=== PATIENT | female | born 1970 | race Caucasian/White ===

== ENCOUNTER 2019-04-27 18:18 | Emergency (ER) | payer BC, OTHER ==
[2019-04-27 18:31] VITALS: TEMP 98.9
--- NOTE | 2019-04-27 19:14 | ED ---
Extremity Problem HPI - General Chief complaint: Extremity Problem,Nontraumatic Stated complaint: Rule out blood clot Time Seen by Provider: 04/27/19 18:34 Source: patient Mode of arrival: ambulatory Limitations: no limitations - History of Present Illness Initial comments: 49-year-old female patient presents to the emergency department today for evaluation of left posterior knee pain. Patient states she's been having the pain for the last several hours. Patient states for the last couple days she has been having intense cramping to the left lower leg. Patient denies any redness or swelling to the leg. Denies any fever or chills. Denies any recent injury but a couple months ago did fall down the stairs and had extensive bruising over most of her body. Patient denies history of DVT. States she did travel to [place] by car in December. She denies any use of hormonal medications. Patient denies any recent rash, shortness breath, chest pain, abdominal pain, nausea, vomiting, diarrhea, constipation, back pain, numbness, tingling, dizziness, weakness, hematuria, dysuria, urinary urgency, urinary frequency, headache, visual changes, or any other complaints. - Related Data Home Medications Medication Instructions Recorded Confirmed No Known Home Medications 04/27/19 04/27/19 Allergies Allergy/AdvReac Type Severity Reaction Status Date / Time morphine Allergy Unknown Verified 04/27/19 18:48 Review of Systems ROS Statement: Those systems with pertinent positive or pertinent negative responses have been documented in the HPI. ROS Other: All systems not noted in ROS Statement are negative. Past Medical History Past Medical History: No Reported History Additional Past Medical History / Comment(s): skin ca History of Any Multi-Drug Resistant Organisms: None Reported Past Surgical History: Section, Cholecystectomy, Hysterectomy Additional Past Surgical History / Comment(s): skin ca removal Past Psychological History: No Psychological Hx Reported Smoking Status: Former smoker Past Alcohol Use History: Occasional Past Drug Use History: Marijuana General Exam Limitations: no limitations General appearance: alert, in no apparent distress, other (This is a well- developed, well-nourished adult female patient in no acute distress. Vital signs upon presentation are temperature 98.9F, pulse 95, respirations 18, blood pressure 149/98, pulse ox 100% on room air.) Eye exam: Present: normal appearance, PERRL, EOMI. Absent: scleral icterus, conjunctival injection, periorbital swelling ENT exam: Present: normal exam, normal oropharynx, mucous membranes moist Respiratory exam: Present: normal lung sounds bilaterally. Absent: respiratory distress, wheezes, rales, rhonchi, stridor Cardiovascular Exam: Present: regular rate, normal rhythm, normal heart sounds. Absent: systolic murmur, diastolic murmur, rubs, gallop, clicks GI/Abdominal exam: Present: soft, normal bowel sounds. Absent: distended, tenderness, guarding, rebound, rigid Extremities exam: Present: normal inspection, full ROM, tenderness (left posterior knee), normal capillary refill, other (Skin to the left leg is pink, warm, dry. Cap refills less than 3 seconds. Pedal pulses 2+ and equal bilaterally.). Absent: pedal edema, joint swelling, calf tenderness Neurological exam: Present: alert, oriented X3, CN II-XII intact Psychiatric exam: Present: normal affect, normal mood Skin exam: Present: warm, dry, intact, normal color. Absent: rash Course Vital Signs 04/27/19 04/27/19 18:26 21:53 Temperature 98.9 F Pulse Rate 95 76 Respiratory 18 19 Rate Blood Pressure 149/98 136/85 O2 Sat by Pulse 100 95 Oximetry Medical Decision Making - Medical Decision Making 49-year-old female patient presented to the emergency department today for evaluation of discomfort behind the left knee. Patient is also reporting lower leg cramping for the last couple of days. Physical examination is unremarkable. Skin is pink, warm, and dry. Cap refills less than 3 seconds. No swelling was noted. No erythema. Patient's vital signs are stable. Fever. Ultrasound was obtained to rule out DVT, was negative. I did discuss findings and results with the patient. She is instructed take Tylenol Motrin for pain control. Instructed to follow-up with the primary care physician for recheck in 1-2 days. Return parameters discussed in detail. She verbalizes understanding and agreed with this plan. - Radiology Data Radiology results: report reviewed, image reviewed Doppler duplex of the left lower trauma he was obtained. Report was reviewed in its entirety. Impression by Dr. Packer shows no evidence of deep venous thrombosis in the left leg. Disposition Clinical Impression: Left knee pain Disposition: HOME SELF-CARE Condition: Good Instructions (If sedation given, give patient instructions): Knee Pain (ED) Additional Instructions: Take Tylenol and Motrin for discomfort. Rest leg. Follow-up through primary care physician for recheck in 1-2 days. Return to the emergency department immediately for any new, worsening, or concerning symptoms. Is patient prescribed a controlled substance at d/c from ED?: No Referrals: Aron Macedo MD [Primary Care Provider] - 1-2 days Time of Disposition: 21:38
--- NOTE | 2019-04-27 21:23 | US ---
EXAMINATION TYPE: US venous doppler duplex LE LT DATE OF EXAM: 04/27/2019 9:10 PM COMPARISON: NONE CLINICAL HISTORY: Pain. Pain left leg x 1 day. No hx of DVT. Not on thinners. SIDE PERFORMED: Left TECHNIQUE: The lower extremity deep venous system is examined utilizing real time linear array sonog kwesi with graded compression, doppler sonography and color-flow sonography. VESSELS IMAGED: External Iliac Vein (EIV) Common Femoral Vein Deep Femoral Vein Greater Saphenous Vein * Femoral Vein Popliteal Vein Proximal Calf Veins (* superficial vessels) Left Leg: No evidence of DVT in left leg at this time. IMPRESSION: No evidence of deep venous thrombosis in the left leg.
[2019-04-27 21:54] VITALS: BP 136/85; PULSE 76; RESP 19
== END 2019-04-27 21:52 | disposition home or self-care (01) ==
LOC: EC 18:18
DX: M25.562 Pain in left knee (principal); R50.9 Fever, unspecified; Z85.828 Personal history of other malignant neoplasm of skin; Z87.891 Personal history of nicotine dependence; Z90.49 Acquired absence of other specified parts of digestive tract; Z90.710 Acquired absence of both cervix and uterus; Z98.890 Other specified postprocedural states; Z88.5 Allergy status to narcotic agent
CPT/HCPCS: 99283

== ENCOUNTER 2020-08-07 02:33 | Observation (INO) | payer OTHER ==
--- NOTE | 2020-08-07 02:56 | ED ---
Abdominal Pain HPI - General Chief Complaint: Abdominal Pain Stated Complaint: Abd Pain Time Seen by Provider: 08/07/20 02:50 Source: patient, EMS Mode of arrival: EMS Limitations: no limitations - History of Present Illness Initial Comments: This patient is 50-year-old woman who presents to be evaluated for epigastric pain. Patient states that it had come on this evening, and then she had intense urge to have bowel movement. Pain was initially aching, severe, and constant. She does note that it has started to improve and she rates it moderate cu rrently. She had similar episode within the past couple of months and she had been admitted to the hospital in [place] and states that they checked her for heart disease. MD Complaint: abdominal pain -: hour(s) Location: epigastric Radiation: none Migration to: no migration Severity: moderate, severe Quality: aching Consistency: constant Improves With: nothing Worsens With: nothing Associated Symptoms: diarrhea - Related Data Previous Rx's Medication Instructions Recorded Famotidine [Pepcid] 20 mg PO HS tab 08/07/20 Pantoprazole Sodium [Protonix] 40 mg PO BID #60 tablet. 08/07/20 Allergies Allergy/AdvReac Type Severity Reaction Status Date / Time morphine Allergy Unknown Verified 08/07/20 06:08 Review of Systems ROS Statement: Those systems with pertinent positive or pertinent negative responses have been documented in the HPI. ROS Other: All systems not noted in ROS Statement are negative. Constitutional: Denies: fever, chills Respiratory: Denies: cough, dyspnea Cardiovascular: Denies: chest pain, palpitations, edema Gastrointestinal: Reports: abdominal pain, diarrhea. Denies: vomiting, constipation, melena, hematochezia Genitourinary: Denies: dysuria, hematuria Musculoskeletal: Denies: back pain Skin: Denies: rash Neurological: Denies: headache, weakness, numbness Past Medical History Past Medical History: No Reported History Additional Past Medical History / Comment(s): skin ca, esophageal spasms, hiatal hernia History of Any Multi-Drug Resistant Organisms: None Reported Past Surgical History: Section, Cholecystectomy, Hysterectomy Additional Past Surgical History / Comment(s): skin ca removal Past Psychological History: No Psychological Hx Reported Smoking Status: Former smoker Past Alcohol Use History: Occasional Past Drug Use History: Marijuana - Past Family History Father Family Medical History: Myocardial Infarction ([place]) Additional Family Medical History / Comment(s): Father of a [place] at the age of 47yrs. Mother Family Medical History: No Reported History Additional Family Medical History / Comment(s): Mother is healthy General Exam Limitations: no limitations General appearance: alert, in no apparent distress Head exam: Present: atraumatic, normocephalic Eye exam: Present: normal appearance. Absent: scleral icterus, conjunctival injection ENT exam: Present: normal oropharynx Neck exam: Present: normal inspection Respiratory exam: Present: normal lung sounds bilaterally. Absent: respiratory distress, wheezes, rales, rhonchi, stridor Cardiovascular Exam: Present: regular rate, normal rhythm, normal heart sounds. Absent: systolic murmur, diastolic murmur, rubs, gallop GI/Abdominal exam: Present: soft, tenderness (Mild epigastric tenderness). Absent: distended, guarding, rebound, rigid, mass, pulsatile mass, hernia Extremities exam: Present: normal inspection, normal capillary refill. Absent: pedal edema, calf tenderness Back exam: Present: normal inspection. Absent: CVA tenderness (R), CVA tenderness (L) Neurological exam: Present: alert Skin exam: Present: warm, dry, intact, normal color. Absent: rash Course Vital Signs 08/07/20 08/07/20 08/07/20 02:36 03:40 04:38 Temperature 98.9 F Pulse Rate 108 H 94 102 H Respiratory 20 19 18 Rate Blood Pressure 142/82 112/90 125/74 O2 Sat by Pulse 97 96 96 Oximetry 08/07/20 08/07/20 08/07/20 05:15 06:00 06:57 Temperature 98.8 F 98.6 F Pulse Rate 102 H 94 96 Respiratory 18 19 17 Rate Blood Pressure 125/81 130/77 119/67 O2 Sat by Pulse 97 98 100 Oximetry Medical Decision Making - Lab Data Result diagrams: 08/07/20 03:31 08/07/20 03:31 Lab Results 08/07/20 08/07/20 08/07/20 Range/Units 03:31 03:31 03:31 WBC 7.4 (3.8-10.6) k/uL RBC 4.17 (3.80-5.40) m/uL Hgb 14.2 (11.4-16.0) gm/dL Hct 42.0 (34.0-46.0) % MCV 100.8 H (80.0-100.0) fL MCH 34.1 (25.0-35.0) pg MCHC 33.9 (31.0-37.0) g/dL RDW 13.0 (11.5-15.5) % Plt Count 75 L (150-450) k/uL Neutrophils % 76 % Lymphocytes % 14 % Monocytes % 6 % Eosinophils % 2 % Basophils % 1 % Neutrophils # 5.6 (1.3-7.7) k/uL Lymphocytes # 1.0 (1.0-4.8) k/uL Monocytes # 0.5 (0-1.0) k/uL Eosinophils # 0.2 (0-0.7) k/uL Basophils # 0.0 (0-0.2) k/uL Manual Slide Review Performed D-Dimer (<0.60) mg/L FEU Sodium 138 (137-145) mmol/L Potassium 4.9 (3.5-5.1) mmol/L Chloride 108 H (98-107) mmol/L Carbon Dioxide 22 (22-30) mmol/L Anion Gap 8 mmol/L BUN 20 H (7-17) mg/dL Creatinine 0.77 (0.52-1.04) mg/dL Est GFR (CKD-EPI)AfAm >90 (>60 ml/min/1.73 sqM) Est GFR (CKD-EPI)NonAf 89 (>60 ml/min/1.73 sqM) Glucose 105 H (74-99) mg/dL Calcium 9.6 (8.4-10.2) mg/dL Total Bilirubin 0.7 (0.2-1.3) mg/dL AST 36 (14-36) U/L ALT 21 (4-34) U/L Alkaline Phosphatase 73 (38-126) U/L Troponin I (0.000-0.034) ng/mL Total Protein 7.4 (6.3-8.2) g/dL Albumin 4.4 (3.5-5.0) g/dL Amylase 50 (30-110) U/L Lipase 125 (23-300) U/L Urine Color Yellow Urine Appearance Cloudy H (Clear) Urine pH 5.5 (5.0-8.0) Ur Specific Ransom 1.032 (1.001-1.035) Urine Protein 1+ H (Negative) Urine Glucose (UA) Negative (Negative) Urine Ketones Negative (Negative) Urine Blood Negative (Negative) Urine Nitrite Negative (Negative) Urine Bilirubin Negative (Negative) Urine Urobilinogen <2.0 (<2.0) mg/dL Ur Leukocyte Esterase Trace H (Negative) Urine RBC 1 (0-5) /hpf Urine WBC 8 H (0-5) /hpf Ur Squamous Epith Cells 3 (0-4) /hpf Hyaline Casts 1 (0-2) /lpf Urine Mucus Moderate H (None) /hpf 08/07/20 08/07/20 Range/Units 03:31 03:31 WBC (3.8-10.6) k/uL RBC (3.80-5.40) m/uL Hgb (11.4-16.0) gm/dL Hct (34.0-46.0) % MCV (80.0-100.0) fL MCH (25.0-35.0) pg MCHC (31.0-37.0) g/dL RDW (11.5-15.5) % Plt Count (150-450) k/uL Neutrophils % % Lymphocytes % % Monocytes % % Eosinophils % % Basophils % % Neutrophils # (1.3-7.7) k/uL Lymphocytes # (1.0-4.8) k/uL Monocytes # (0-1.0) k/uL Eosinophils # (0-0.7) k/uL Basophils # (0-0.2) k/uL Manual Slide Review D-Dimer 0.41 (<0.60) mg/L FEU Sodium (137-145) mmol/L Potassium (3.5-5.1) mmol/L Chloride (98-107) mmol/L Carbon Dioxide (22-30) mmol/L Anion Gap mmol/L BUN (7-17) mg/dL Creatinine (0.52-1.04) mg/dL Est GFR (CKD-EPI)AfAm (>60 ml/min/1.73 sqM) Est GFR (CKD-EPI)NonAf (>60 ml/min/1.73 sqM) Glucose (74-99) mg/dL Calcium (8.4-10.2) mg/dL Total Bilirubin (0.2-1.3) mg/dL AST (14-36) U/L ALT (4-34) U/L Alkaline Phosphatase (38-126) U/L Troponin I <0.012 (0.000-0.034) ng/mL Total Protein (6.3-8.2) g/dL Albumin (3.5-5.0) g/dL Amylase (30-110) U/L Lipase (23-300) U/L Urine Color Urine Appearance (Clear) Urine pH (5.0-8.0) Ur Specific Ransom (1.001-1.035) Urine Protein (Negative) Urine Glucose (UA) (Negative) Urine Ketones (Negative) Urine Blood (Negative) Urine Nitrite (Negative) Urine Bilirubin (Negative) Urine Urobilinogen (<2.0) mg/dL Ur Leukocyte Esterase (Negative) Urine RBC (0-5) /hpf Urine WBC (0-5) /hpf Ur Squamous Epith Cells (0-4) /hpf Hyaline Casts (0-2) /lpf Urine Mucus (None) /hpf - EKG Data -: EKG Interpreted by Ny EKG shows normal: sinus rhythm, axis (Left axis deviation), intervals (Normal), QRS complexes (Possible old inferior infarct) Rate: normal (Rate 98 bpm) Disposition Clinical Impression: Abdominal pain Disposition: ADMITTED IP TO THIS HOSP Condition: Stable
[2020-08-07 03:43] LABS: Appearance,Urine Cloudy (Clear); Bilirubin,Urine Negative (Negative); Blood,Urine Negative (Negative); Color,Urine Yellow; Glucose,Urine (UA) Negative (Negative); Hyaline Casts,Urine 1 /lpf (0-2); Ketones,Urine Negative (Negative); Leukocyte Esterase,Urine Trace (Negative); Mucus,Urine Moderate /hpf; Nitrite,Urine Negative (Negative); PH, Urine 5.5 (5.0-8.0); Protein,Urine 1+ (Negative); RBC,Urine 1 /hpf (0-5); Specific Gravity,Urine 1.032 (1.001-1.035); Squamous Epithelial Cell,Urine 3 /hpf (0-4); Urobilinogen,Urine <2.0 mg/dL (<2.0); WBC,Urine 8 /hpf (0-5)
[2020-08-07] MEDS ORDERED: KETOROLAC 15 MG/ML 1 ML VIAL IVP STA (03:58)
[2020-08-07 04:02] LABS: Basophils % (A) 1 %; Eosinophils # (A) 0.2 k/uL (0-0.7); Eosinophils % (A) 2 %; HGB 14.2 gm/dL (11.4-16.0); Lymphocytes % (A) 14 %; MCH 34.1 pg (25.0-35.0); MCHC 33.9 g/dL (31.0-37.0); MCV 100.8 fL (80.0-100.0); Mean Platelet Volume 10.3; Monocytes # (A) 0.5 k/uL (0-1.0); Monocytes % (A) 6 %; Neutrophils # (A) 5.6 k/uL (1.3-7.7); Neutrophils % (A) 76 %; RBC 4.17 m/uL (3.80-5.40); WBC 7.4 k/uL (3.8-10.6)
[2020-08-07] MEDS ORDERED: ONDANSETRON 4 MG/2 ML VIAL IVP STA (04:08)
--- NOTE | 2020-08-07 04:17 | XR ---
EXAMINATION TYPE: XR KUB DATE OF EXAM: 08/07/2020 COMPARISON: 04/09/2014 HISTORY: Abdominal pain TECHNIQUE: FINDINGS: 2 views supine were obtained. There is no sign of intestinal obstruction or pneumoperitoneu m. Fecal pattern is normal. There are clips from cholecystectomy. There is no evidence of a mass. Agnes g bases are clear. IMPRESSION: Nonacute abdomen. No change.
[2020-08-07 04:18] LABS: ALT 21 U/L (4-34); AST 36 U/L (14-36); African American GFR (CKD) >90 (>60 ml/min/1.73 sqM); Albumin 4.4 g/dL (3.5-5.0); Alkaline Phosphatase 73 U/L (38-126); Amylase 50 U/L (30-110); Anion Gap 8 mmol/L; Blood Urea Nitrogen 20 mg/dL (7-17); Calcium 9.6 mg/dL (8.4-10.2); Carbon Dioxide 22 mmol/L (22-30); Chloride 108 mmol/L (98-107); Glucose 105 mg/dL (74-99); Non-African American GFR(CKD) 89 (>60 ml/min/1.73 sqM); Potassium 4.9 mmol/L (3.5-5.1); Sodium 138 mmol/L (137-145); Total Bilirubin 0.7 mg/dL (0.2-1.3); Total Protein 7.4 g/dL (6.3-8.2)
[2020-08-07 04:45] LABS: Platelet Count 75 k/uL (150-450)
[2020-08-07] MEDS ORDERED: HYDROmorphone 0.5 MG/0.5 ML SYRINGE IVP STA (05:33)
--- NOTE | 2020-08-07 06:41 | CT ---
EXAMINATION TYPE: CT abdomen pelvis w con DATE OF EXAM: 08/07/2020 COMPARISON: HISTORY: Abdominal pain CT DLP: 1105.6 mGycm Automated exposure control for dose reduction was used. CONTRAST: Performed with IV Contrast, patient injected with 100 mL of Isovue 300. Lung bases are clear. There is no pleural effusion. Heart size is normal. There is no pericardial eff usion. Liver shows no focal defect. Spleen stomach pancreas appear normal. There are clips from brandyn cystectomy. The bile ducts are not dilated. There is no adrenal mass. Kidneys show satisfactory contrast opacification. There is no hydronephrosi s. There is normal excretion on the delayed images. Ureters are not dilated. There is no retroperiton eal adenopathy. Bladder distends smoothly. There is no inguinal hernia. There is hysterectomy. There is no free fluid in the pelvis. There is no evidence of a pelvic mass. Appendix is posterior and appears normal. There is no mesenteric edema. There is no ascites or free a ir. There is no bowel obstruction. The lumbar vertebra have fairly normal spacing and alignment. Post erior elements are intact. Facet joints are intact. Bony pelvis is intact. Hip joints appear normal. IMPRESSION: Negative CT scan abdomen and pelvis. Normal appendix. No adverse change.
[2020-08-07] MEDS ORDERED: DICYCLOMINE 10 MG/ML 2 ML AMP IM STA (06:59)
[2020-08-07] MEDS ORDERED: ONDANSETRON 4 MG/2 ML VIAL IVP PRN (07:10)
[2020-08-07] MEDS ORDERED: HYDROcodone/APAP 5-325MG 1 EACH TAB PO PRN (07:10)
[2020-08-07] MEDS ORDERED: MAG HYDROX/AL HYDROX/SIMETH 30 ML CUP PO PRN (07:10)
[2020-08-07] MEDS ORDERED: NALOXONE 0.4 MG/ML 1 ML VIAL IV PRN (07:10)
[2020-08-07] MEDS ORDERED: MAGNESIUM HYDROXIDE 2,400 MG/10 ML CUP PO PRN (07:10)
[2020-08-07] MEDS ORDERED: ACETAMINOPHEN TAB 325 MG TAB PO PRN (07:10)
[2020-08-07] MEDS ORDERED: SODIUM CHLORIDE 0.9% 1,000 ML IV SCH (07:15)
[2020-08-07] MEDS ORDERED: FAMOTIDINE 20 MG TAB PO SCH ×2 (09:00→21:00)
[2020-08-07 09:27] VITALS: BP 146/91; PULSE 80; RESP 16; TEMP 98.2
[2020-08-07] MEDS ORDERED: PANTOPRAZOLE 40 MG/10 ML VIAL IVP SCH (10:00)
[2020-08-07] MEDS: ENOXAPARIN 40 MG/0.4 ML SYRINGE SQ SCH ×2 (10:00→10:06)
[2020-08-07] MEDS ORDERED: LIDOCAINE 1% INJ 10MG/ML (20 ML MDV) ONE (13:13)
[2020-08-07] MEDS ORDERED: PROPOFOL 10 MG/ML 20 ML VIAL IV ONE (13:13)
[2020-08-07] MEDS ORDERED: IV FLUID CONTINUATION 1,000 ML IV ONE (13:13)
--- NOTE | 2020-08-07 14:09 | P.PCN ---
Date of Procedure: 08/07/20 Description of Procedure: BRIEF HISTORY: Patient is a 50-year-old female who is in multiple presentations with complaints of chest and abdominal pain, reflux and GERD. The patient has had recurrence of her symptoms currently on a regimen of Pepcid twice daily and omeprazole once daily. She reports waking up last night with a severe amount of acid in her esophagus. PROCEDURE PERFORMED: Esophagogastroduodenoscopy with biopsies. PREOPERATIVE DIAGNOSIS: Chest pain, abdominal pain, GERD. ESTIMATED BLOOD LOSS: Minimal. IV sedation per anesthesia. PROCEDURE: After informed consent was obtained, the patient was brought into the endoscopy unit. IV sedation was administered by Anesthesia under continuous monitoring. Initially the Olympus GIF-190 video endoscope was inserted into the mouth. Esophagus intubated without any difficulty. It was gradually advanced into the stomach and duodenum and carefully examined. The bulb and the second part of the duodenum appeared normal with biopsies taken. The scope at this time was withdrawn to the stomach, adequately insufflated with air, and upon careful examination, mucosa of the antrum, body, cardia and the fundus appeared normal, except for some mild scattered erythema in the antrum and body suggestive of mild gastritis biopsies taken. There is also a moderate amount of food noted throughout the stomach. The scope was then withdrawn into the esophagus. The GE junction was located at 37 cm from the incisors, with a 2 cm hiatal hernia noted, with the GE junction biopsied. The esophagus appeared normal. There were no erosions or ulcerations seen and the patient tolerated the procedure well. IMPRESSION: 1. Mild gastritis. 2. Small hiatal hernia. 3. Moderate amount of retained food in stomach. 4. Biopsies taken of the duodenum, antrum and body and GE junction. RECOMMENDATIONS: The findings of this examination were discussed with the patient. Okay to resume diet. Okay to resume medications. Would recommend patient altered her regimen and take Prilosec twice daily with Pepcid nightly for maximal acid relief. Follow-up in the GI clinic as scheduled. Consider gastric emptying study in the outpatient setting if the patient is no longer taking narcotic therapy.
--- NOTE | 2020-08-07 18:33 | P.HPIM ---
History of Present Illness H&P Date: 08/07/20 Chief Complaint: Chest pain History of presenting complaint: This is a pleasant 50-year-old patient of Dr. Aron Macedo. Patient 3 weeks ago was having episodes of midsternal sharp pains. Was admitted at [facility]. Computed tomography scan of the chest was negative for PE. Had exercise stress test that was negative. Patient was discharged home. Patient now been making up with fluid going into the throat at night especially sometimes choking. Having hiccups. Also gets of any bloating sensation after eating little but she feels totally filled up and bloated. Patient is put on over 10 pounds in the last few weeks. Patient drinks wine about 3 times a week. Did smoke in the past. Reflux is really been bothering her. The pain does not radiate her neck around. No dizziness, lightheadedness no perspiration. No fever no chills. Review of systems: GEN.: None EYES: None HEENT: None NECK: None RESPIRATORY: None CARDIOVASCULAR: As above GASTROINTESTINAL: As above GENITOURINARY: None MUSCULOSKELETAL: None LYMPHATICS: None HEMATOLOGICAL: None PSYCHIATRY: None NEUROLOGICAL: None Past medical history to include: GERD, esophageal spasm, hiatal hernia, skin cancer removed Social history: Lives alone. 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 Patient smoked for a few years. Drinks wine about 3 times a week. Does some marijuana. Physical examination: VITAL SIGNS: 98.6, 96, 17, 119/67, 100% on room air GENERAL: BMI 32.4, sitting in bed, comfortable. EYES: Pupils equal. Conjunctiva normal. HEENT: External appearance of nose and ears normal, oral cavity grossly normal. NECK: JVD not raised; masses not palpable. HEART: First and second heart sounds are normal; no edema. LUNGS: Respiratory rate normal; clear to auscultation. ABDOMEN: Soft, nontender, liver spleen not palpable, no masses palpable. PSYCH: Alert and oriented x3; mood and affect normal. NEUROLOGICAL: Cranial nerves grossly intact; no facial asymmetry, power and sensation grossly intact. LYMPHATICS: No lymph nodes palpable in the axilla and neck INVESTIGATIONS, reviewed in the clinical context: White count 7.4 hemoglobin 14.2 potassium 4.9 creatinine 0.77 EKG tracing personally reviewed by me-normal sinus rhythm Computed tomography scan of the abdomen pelvis-unremarkable KUB [id number] Assessment: -This is a patient 3 weeks ago had central chest pressure sharp pain admitted to the hospital with a negative CT chest for PE and negative stress test. Patient having severe reflux symptoms including water brash especially at night and cups and a bloating sensation. Sees most of the patient's symptoms are related to reflux reflux esophagitis, a esophageal spasm. -Obesity BMI 32.4 Plan: Patient reported on PPI. GI consulted. Plan to proceed with EGD. Home medications resumed. Lifestyle changes changes were discussed with the patient in detail. Past Medical History Past Medical History: Cancer, GERD/Reflux Additional Past Medical History / Comment(s): Esophageal spasms, hiatal hernia, skin cancer with removal. History of Any Multi-Drug Resistant Organisms: None Reported Past Surgical History: Section, Cholecystectomy, Hysterectomy Additional Past Surgical History / Comment(s): EGD 30 yrs ago, colonosocpy, skin ca removal Past Anesthesia/Blood Transfusion Reactions: No Reported Reaction Smoking Status: Former smoker - Past Family History Father Family Medical History: Myocardial Infarction ([place]) Additional Family Medical History / Comment(s): Father of a [place] at the age of 47yrs. Mother Family Medical History: No Reported History Additional Family Medical History / Comment(s): Mother is healthy Medications and Allergies Home Medications Medication Instructions Recorded Confirmed Type Famotidine [Pepcid] 20 mg PO HS tab 08/07/20 Rx Pantoprazole Sodium [Protonix] 40 mg PO BID #60 tablet. 08/07/20 Rx Allergies Allergy/AdvReac Type Severity Reaction Status Date / Time morphine Allergy Unknown Verified 08/07/20 06:08 Physical Exam Vitals: Vital Signs Temp Pulse Pulse Resp BP BP Pulse Ox 08/07/20 09:22 98.2 F 80 16 146/91 99 08/07/20 09:00 92 18 127/84 98 08/07/20 06:57 98.6 F 96 17 119/67 100 08/07/20 06:00 94 19 130/77 98 08/07/20 05:15 98.8 F 102 H 18 125/81 97 08/07/20 04:38 102 H 18 125/74 96 08/07/20 03:40 94 19 112/90 96 08/07/20 02:36 98.9 F 108 H 20 142/82 97 Intake and Output 08/06/20 08/07/20 08/07/20 22:59 06:59 14:59 Other: Voiding Method Toilet Weight 88.451 kg 88.451 kg Results CBC & Chem 7: 08/07/20 03:31 08/07/20 03:31 Labs: Abnormal Lab Results - Last 24 Hours (Table) 08/07/20 08/07/20 08/07/20 Range/Units 03:31 03:31 03:31 MCV 100.8 H (80.0-100.0) fL Plt Count 75 L (150-450) k/uL Chloride 108 H (98-107) mmol/L BUN 20 H (7-17) mg/dL Glucose 105 H (74-99) mg/dL Urine Appearance Cloudy H (Clear) Urine Protein 1+ H (Negative) Ur Leukocyte Esterase Trace H (Negative) Urine WBC 8 H (0-5) /hpf Urine Mucus Moderate H (None) /hpf Thrombosis Risk Factor Assmnt - Choose All That Apply Any of the Below Risk Factors Present?: Yes Each Factor Represents 1 point: Age 41-60 years, Obesity (BMI >25) Other Risk Factors: Yes Each Risk Factor Represents 2 Points: Malignancy Other congenital or acquired thrombophilia - If yes, enter type in comment: No Thrombosis Risk Factor Assessment Total Risk Factor Score: 4 Thrombosis Risk Factor Assessment Level: Moderate Risk
--- NOTE | 2020-08-07 18:40 | P.DS ---
Providers Date of admission: 08/07/20 07:10 Expected date of discharge: 08/07/20 Attending physician: Bonilla Sanderson Consults: 08/07/20 07:11 Consult Physician Routine Consulting Provider: Adalberto Mccoy Reason/Comments: abdominal pain Do you want consulting provider notified?: Yes Primary care physician: Aron Macedo [facility] Course: Chief Complaint: Chest pain History of presenting complaint: This is a pleasant 50-year-old patient of Dr. Aron Macedo. Patient 3 weeks ago was having episodes of midsternal sharp pains. Was admitted at [facility]. Computed tomography scan of the chest was negative for PE. Had exercise stress test that was negative. Patient was discharged home. Patient now been making up with fluid going into the throat at night especially sometimes choking. Having hiccups. Also gets of any bloating sensation after eating little but she feels totally filled up and bloated. Patient is put on over 10 pounds in the last few weeks. Patient drinks wine about 3 times a week. Did smoke in the past. Reflux is really been bothering her. The pain does not radiate her neck around. No dizziness, lightheadedness no perspiration. No fever no chills. Patient underwent EGD showing some gastritis, moderate amount of retained food in the stomach. Biopsies were done. Outpatient gastric emptying study could be considered. Put on PPIs. Lifestyle changes were discussed. Consultation: Dr. Rivera from GI Physical examination: VITAL SIGNS: 98.2, 80, 16, 146 with 91, 99% room air GENERAL: BMI 32.4, sitting in bed, comfortable. EYES: Pupils equal. Conjunctiva normal. NECK: JVD not raised; masses not palpable. HEART: First and second heart sounds are normal; no edema. LUNGS: Respiratory rate normal; clear to auscultation. ABDOMEN: Soft, nontender, liver spleen not palpable, no masses palpable. PSYCH: Alert and oriented x3; mood and affect normal. INVESTIGATIONS, reviewed in the clinical context: White count 7.4 hemoglobin 14.2 potassium 4.9 creatinine 0.77 EKG tracing personally reviewed by me-normal sinus rhythm Computed tomography scan of the abdomen pelvis-unremarkable KUB [id number] Assessment: -Severe GERD -Acute on chronic gastritis -Obesity BMI 32.4 -Outpatient workup for gastroparesis Disposition: Home Patient Condition at Discharge: Stable Plan - Discharge Summary Discharge Rx Participant: No New Discharge Prescriptions: New Famotidine [Pepcid] 20 mg PO HS tab Pantoprazole Sodium [Protonix] 40 mg PO BID #60 tablet. Discontinued Famotidine [Pepcid] 40 mg PO BID Omeprazole 20 mg PO DAILY Discharge Medication List Famotidine [Pepcid] 20 mg PO HS tab 08/07/20 [Rx] Pantoprazole Sodium [Protonix] 40 mg PO BID #60 tablet. 08/07/20 [Rx] Follow up Appointment(s)/Referral(s): Aron Macedo MD [Primary Care Provider] - 08/12/20 1:15 pm Adalberto Mccoy MD [STAFF PHYSICIAN] - 08/14/20 2:00 pm Patient Instructions/Handouts: Hiatal Hernia (DC), Acute Nausea and Vomiting (DC) Discharge Disposition: HOME SELF-CARE
--- NOTE | 2020-08-10 09:07 | P.CONS ---
History of Present Illness - Reason for Consult Consult date: 08/07/20 Abdominal pain Requesting physician: Bonilla Sanderson - Chief Complaint Abdominal pain - History of Present Illness 50-year-old female who presented to the hospital due to complaints of abdominal pain, she is a medical history significant for GERD and prior cholecystectomy. Previously she had been seen in the hospital for similar complaints. She describes sharp constant pain in the epigastric region of her abdomen. Symptoms have woken the patient up from sleep. Computed tomography scan negative for any acute intra-abdominal process or PE. Patient has a known history of reflux. Only the patient's medical regimen includes Pepcid twice daily and omeprazole at night. She is scheduled for outpatient follow-up with the GI service. The patient does use marijuana. No signs or symptoms of GI bleeding. She has previously undergone EGD and colonoscopy 3 years ago with findings of a hiatal hernia. Review of Systems REVIEW OF SYSTEMS: CONSTITUTIONAL: Denies any fevers, chills, weight change or fatigue. CARDIOVASCULAR: Denies any chest pain, palpitations high or low blood pressures RESPIRATORY: Denies any shortness of breath, hemoptysis or cough. GENITOURINARY: No dysuria or hematuria. MUSCULOSKELETAL: No weakness reported. SKIN: Denies any new rashes or lesions, jaundice or pallor. PSYCHIATRIC: Denies any depression or anxiety. NEUROLOGY: Denies headache, denies any new focal deficits. EARS/NOSE/THROAT: No recent hearing change, congestion, nasal discharge or sore throat. EYES: No pain in eyes, discharge or change in vision. GASTROINTESTINAL: As per HPI. Past Medical History Past Medical History: Cancer, GERD/Reflux Additional Past Medical History / Comment(s): Esophageal spasms, hiatal hernia, skin cancer with removal. History of Any Multi-Drug Resistant Organisms: None Reported Past Surgical History: Section, Cholecystectomy, Hysterectomy Additional Past Surgical History / Comment(s): EGD 30 yrs ago, colonosocpy, skin ca removal Past Anesthesia/Blood Transfusion Reactions: No Reported Reaction Smoking Status: Former smoker - Past Family History Father Family Medical History: Myocardial Infarction ([place]) Additional Family Medical History / Comment(s): Father of a [place] at the age of 47yrs. Mother Family Medical History: No Reported History Additional Family Medical History / Comment(s): Mother is healthy Medications and Allergies Home Medications Medication Instructions Recorded Confirmed Type Famotidine [Pepcid] 20 mg PO HS tab 08/07/20 Rx Pantoprazole Sodium [Protonix] 40 mg PO BID #60 tablet. 08/07/20 Rx Allergies Allergy/AdvReac Type Severity Reaction Status Date / Time morphine Allergy Unknown Verified 08/07/20 06:08 Physical Exam Vitals: Vital Signs Temp Pulse Pulse Resp BP BP Pulse Ox 08/07/20 09:22 98.2 F 80 16 146/91 99 08/07/20 09:00 92 18 127/84 98 08/07/20 06:57 98.6 F 96 17 119/67 100 08/07/20 06:00 94 19 130/77 98 08/07/20 05:15 98.8 F 102 H 18 125/81 97 08/07/20 04:38 102 H 18 125/74 96 08/07/20 03:40 94 19 112/90 96 08/07/20 02:36 98.9 F 108 H 20 142/82 97 Intake and Output 08/06/20 08/07/20 08/07/20 22:59 06:59 14:59 Intake Total 100 Balance 100 Intake: IV 100 Other: Voiding Method Toilet Weight 88.451 kg 88.451 kg On physical examination, patient appears comfortable in no apparent distress. HEAD: Normocephalic, atraumatic. EYES: No scleral icterus. No conjunctival injection. MOUTH: No lesions, tongue midline. NECK: Trachea midline, no gross abnormalities. CHEST: Clear to auscultation with no wheezing or rhonchi appreciated. HEART: Regular rate and rhythm. ABDOMEN: Soft, nontender. Bowel sounds are positive. No organomegaly. No guarding or rigidity. EXTREMITIES: No pedal edema. SKIN: No rashes, no jaundice. NEUROLOGIC: Alert and oriented x3. No focal deficits. Results CBC & Chem 7: 08/07/20 03:31 08/07/20 03:31 Labs: Abnormal Lab Results - Last 24 Hours (Table) 08/07/20 08/07/20 08/07/20 Range/Units 03:31 03:31 03:31 MCV 100.8 H (80.0-100.0) fL Plt Count 75 L (150-450) k/uL Chloride 108 H (98-107) mmol/L BUN 20 H (7-17) mg/dL Glucose 105 H (74-99) mg/dL Urine Appearance Cloudy H (Clear) Urine Protein 1+ H (Negative) Ur Leukocyte Esterase Trace H (Negative) Urine WBC 8 H (0-5) /hpf Urine Mucus Moderate H (None) /hpf CT scan - chest: report reviewed (No evidence of PE on CT chest or any intra- abdominal pathology on visualized GI tract.) Assessment and Plan (1) Abdominal pain Narrative/Plan: 50-year-old female with a known history of GERD and prior cholecystectomy who presented to the hospital with complaints of epigastric abdominal pain. Known history of reflux for which she takes Pepcid twice a day and omeprazole at night. She has had symptoms of pain in the chest and epigastric region of her abdomen unknown etiology. Computed tomography scan of the chest negative for any PE and x-ray KUB negative. Unclear etiology, may be related to functional bowel disorder, uncontrolled GERD, gastritis or esophagitis or other etiology. Status: Acute Code(s): R10.9 - UNSPECIFIED ABDOMINAL PAIN SNOMED Code(s): 92294495 (2) GERD (gastroesophageal reflux disease) Status: Acute Code(s): K21.9 - GASTRO-ESOPHAGEAL REFLUX DISEASE WITHOUT ESOPHAGITIS SNOMED Code(s): 491704530 Plan: Supportive care Nothing by mouth Plan for EGD for further evaluation Patient encouraged to change her medical regimen and increase omeprazole to t wice daily before meals with Pepcid at night for maximal antireflux measures Reflux lifestyle modifications also discussed Thank you for allowing us to participate in the care of the patient
== END 2020-08-07 15:40 | disposition home or self-care (01) ==
LOC: EC 02:33 → 1SOBS 07:10
PROVIDERS: ADMIT Hospitalist; ATTEND Hospitalist
DX: K21.9 Gastro-esophageal reflux disease without esophagitis (principal); K29.00 Acute gastritis without bleeding; K29.50 Unspecified chronic gastritis without bleeding; K44.9 Diaphragmatic hernia without obstruction or gangrene; K31.89 Other diseases of stomach and duodenum; K22.8 Other specified diseases of esophagus; T18.2XXA Foreign body in stomach, initial encounter; E66.9 Obesity, unspecified; R94.39 Abnormal result of other cardiovascular function study; Z88.5 Allergy status to narcotic agent; Z85.828 Personal history of other malignant neoplasm of skin; Z87.19 Personal history of other diseases of the digestive system; Z98.890 Other specified postprocedural states; Z90.49 Acquired absence of other specified parts of digestive tract; Z90.710 Acquired absence of both cervix and uterus; Z87.891 Personal history of nicotine dependence; Z68.32 Body mass index [BMI] 32.0-32.9, adult; Z79.899 Other long term (current) drug therapy; Z98.811 Dental restoration status; Z79.891 Long term (current) use of opiate analgesic; Z82.49 Family history of ischemic heart disease and other diseases of the circulatory system
CPT/HCPCS: 96375 ×2; 96376; 96372; 96374; 99285; 36415; 93005; 85379; 88305; 80053; 82150; 83690; 84484; 85025; 81001; 74018; 74177; 43239; G0378; J0500; J2405; J2001; J1885; J2704; C9113; J1170; Q9967

== ENCOUNTER → 2020-08-22 | Outpatient (CLI) | payer OTHER ==
--- NOTE | 2020-08-22 12:32 | NM ---
EXAMINATION TYPE: NM gastric emptying static DATE OF EXAM: 08/22/2020 COMPARISON: CT abdomen and pelvis 220 days ago. HISTORY: Acute abdominal pain. Following administration of 2.08 mCi Tc 99m Sulfur Colloid with 4oz scrambled liquid eggs, 1 piece of buttered toast, and ice water, projection images of the abdomen were obtained 10 minutes post ingest ion. Patient Emptying Values 1 Hour 17 % 2 Hours 46 % 3 Hours 67 % 4 Hours 90 % Gastroesophagel reflux: None IMPRESSION: Gastric emptying: Values at L3 and 4 hours are near the lower limits of normal/mildly abnormal. Find ings consistent with mild underlying gastroparesis. Gastric emptying normal percentage values: 30 minutes: <70% of retention (> 30% emptying) suggests abnormally fast emptying. 60 minutes: <90% retention (>10% emptying) is normal; less than 30% retention (>70% emptying) suggest s abnormally rapid emptying. 90 minutes: <65% retention (> 35% emptying) is normal. 120 minutes: <60% retention (> 40% emptying) is normal. 180 minutes: <30% retention (> 70% emptying) is normal. Gastric emptying T-1/2: Solid: The normal range is 60-105 minutes Liquid only: Normal range is 10-45 minutes. Liquid only-children: At 60 minutes, normal range is 44-58 % . Liquid only-infants: At 60 minutes, normal range is 32-64 %. Additional references: Gastric Emptying Scintigraphy [email or web address]://[email or web address]
== END | disposition home or self-care (01) ==
LOC: RADNMMAIN 06:55
PROVIDERS: ATTEND Internal Medicine Gastroenterology
DX: K31.84 Gastroparesis (principal)
CPT/HCPCS: 78264; A9541

== ENCOUNTER → 2024-11-30 | Outpatient (CLI) | payer OTHER ==
--- NOTE | 2024-11-30 11:32 | CT ---
EXAMINATION TYPE: CT abdomen pelvis wo con DATE OF EXAM: 11/30/2024 11:10 AM COMPARISON: 08/07/2020 CLINICAL INDICATION: Female, 54 years old with history of R10.9 unspecified abdominal pain, cramping pain, TECHNIQUE: Contiguous axial scanning of the abdomen and pelvis without IV contrast. Coronal and sagit gwen reconstructions performed. CT DLP: 736.7 mGycm. Automated exposure control for dose reduction was used. FINDINGS: Heart normal size without pericardial effusion. Lung bases clear without pleural effusion. A couple tiny hepatic hypodensities measuring up to 1 cm likely small cysts. Small hiatal hernia. Cholecystectomy clips. Adrenal glands, kidneys, spleen, and pancreas show no gross abnormality by noncontrast CT. Ingested material partially distending the stomach. No dilated small bowel, free fluid, or free air. A few scattered borderline to mildly enlarged mesenteric lymph nodes measuring up to 1.2 cm appear to have been present previously suggesting chronic, benign etiology. No progressive mesenteric or retro peritoneal adenopathy. Normal appendix. Generalized colonic diverticulosis. Mild overall stool burden. There is more moderat e stool distending the rectum up to 6.3 cm wide. There is some submucosal fat deposition along the de scending colon which may be idiopathic or part reflect bouts of previous inflammation. No pericolic i nflammatory changes seen. Bladder are distended. Uterus surgically absent. Suspect visualization of the left ovary. Right ovary not well delineated. No abnormal fluid collection in the pelvis or pelvic lymphadenopathy. Tiny righ t-sided pelvic phlebolith. Bones: There is a transitional lumbosacral segment with sacralized L5. Moderate degenerative disc dis ease L4-L5. IMPRESSION: 1. Small hiatal hernia. 2. Generalized colonic diverticulosis. No acute inflammation seen. 3. Status post cholecystectomy and hysterectomy. [facility], Workstation: [email or web address], 11/30/2024 11:30 AM
== END | disposition home or self-care (01) ==
LOC: RADCTMAIN 10:52
PROVIDERS: ATTEND Family Medicine
DX: K44.9 Diaphragmatic hernia without obstruction or gangrene (principal); K57.30 Diverticulosis of large intestine without perforation or abscess without bleeding; Z90.710 Acquired absence of both cervix and uterus; Z90.49 Acquired absence of other specified parts of digestive tract
CPT/HCPCS: 74176